=== PATIENT | female | born 1950 | race Two or more races ===

== ENCOUNTER 2019-11-26 13:00 | Outpatient (CLI) | payer MEDICARE, MEDICAID ==
[2019-11-26 15:01] LABS: BASOPHILS # (AUTO) 0.1 /CMM (0.0-0.2); BASOPHILS % (AUTO) 0.9 % (0.0-2.0); EOSINOPHILS % (AUTO) 1.8 % (0.0-6.0); HEMATOCRIT 46 % (33-45); HEMOGLOBIN 14.9 g/dL (11.5-14.8); LYMPHOCYTES # (AUTO) 2.5 /CMM (0.8-4.8); LYMPHOCYTES % (AUTO) 36.8 % (20.0-44.0); MEAN CORPUSCULAR HGB CONC 33 g/dl (31.0-36.0); MEAN CORPUSCULAR VOLUME 87 fL (82-100); MONOCYTES # (AUTO) 0.4 /CMM (0.1-1.30); MONOCYTES % (AUTO) 5.4 % (2.0-12.0); NEUTROPHILS # (AUTO) 3.8 /CMM (1.8-8.9); NEUTROPHILS % (AUTO) 55.1 % (43.0-81.0); PLATELET COUNT (AUTO) 271 /CMM (150-450); RED BLOOD CELL COUNT(AUTO) 5.21 MIL/uL (4.0-5.2); WHITE BLOOD COUNT (AUTO) 6.8 K/uL (4.3-11.0)
[2019-11-26 15:33] LABS: ALBUMIN 3.6 g/dL (3.4-5.0); BILIRUBIN,TOTAL 0.5 mg/dL (0.2-1.0); CALCIUM, SERUM 9.3 mg/dL (8.5-10.1); CREATININE 0.9 mg/dL (0.6-1.3); POTASSIUM 4.1 mmol/L (3.5-5.1); TOTAL PROTEIN, SERUM 7.4 g/dL (6.4-8.2)
== END 2019-11-26 23:59 | disposition home or self-care (01) ==
LOC: MSC 13:00
PROVIDERS: ATTEND Internal Medicine
DX: M79.7 Fibromyalgia (principal); J45.909 Unspecified asthma, uncomplicated; G47.00 Insomnia, unspecified; R53.82 Chronic fatigue, unspecified; J32.9 Chronic sinusitis, unspecified; E53.8 Deficiency of other specified B group vitamins; I10 Essential (primary) hypertension; R73.9 Hyperglycemia, unspecified; I95.1 Orthostatic hypotension; D84.9 Immunodeficiency, unspecified; E55.9 Vitamin D deficiency, unspecified; E78.5 Hyperlipidemia, unspecified
CPT/HCPCS: 36415; 80053; 82306; 83036; 85025; G0463

== ENCOUNTER 2019-12-17 15:11 | Outpatient (CLI) | payer MEDICARE, MEDICAID | END 2019-12-17 23:59 | disposition home or self-care (01) | LOC: MSC 15:11 | PROVIDERS: ATTEND Internal Medicine | DX: L25.9 Unspecified contact dermatitis, unspecified cause (principal); E53.8 Deficiency of other specified B group vitamins; R53.82 Chronic fatigue, unspecified; I10 Essential (primary) hypertension; M79.7 Fibromyalgia; J45.909 Unspecified asthma, uncomplicated; I95.1 Orthostatic hypotension; G47.00 Insomnia, unspecified; D84.9 Immunodeficiency, unspecified; E78.5 Hyperlipidemia, unspecified; R73.9 Hyperglycemia, unspecified ==

== ENCOUNTER 2020-01-14 11:38 | Outpatient (CLI) | payer MEDICARE, MEDICAID | END 2020-01-14 23:59 | disposition home or self-care (01) | LOC: MSC 11:38 | PROVIDERS: ATTEND Internal Medicine | DX: D51.9 Vitamin B12 deficiency anemia, unspecified (principal) | CPT/HCPCS: J3420 ×2; 96372 ==

== ENCOUNTER 2020-01-21 15:30 | Outpatient (CLI) | payer MEDICARE, MEDICAID | END 2020-01-21 23:59 | disposition home or self-care (01) | LOC: MSC 15:30 | PROVIDERS: ATTEND Internal Medicine | DX: B34.9 Viral infection, unspecified (principal); R19.7 Diarrhea, unspecified; J45.909 Unspecified asthma, uncomplicated; L25.9 Unspecified contact dermatitis, unspecified cause; E53.8 Deficiency of other specified B group vitamins; R53.82 Chronic fatigue, unspecified; I10 Essential (primary) hypertension; M79.7 Fibromyalgia; R73.9 Hyperglycemia, unspecified; I95.1 Orthostatic hypotension; G47.00 Insomnia, unspecified; D84.9 Immunodeficiency, unspecified; E78.5 Hyperlipidemia, unspecified ==

== ENCOUNTER 2020-01-24 11:36 | Outpatient (CLI) | payer MEDICARE, MEDICAID | END 2020-01-24 23:59 | disposition home or self-care (01) | LOC: LAB 11:36 | PROVIDERS: ATTEND Internal Medicine | DX: Z01.812 Encounter for preprocedural laboratory examination (principal); Z20.828 Contact with and (suspected) exposure to other viral communicable diseases; J98.8 Other specified respiratory disorders | CPT/HCPCS: C9803; U0003 ==

== ENCOUNTER 2020-07-28 15:50 | Outpatient (CLI) | payer MEDICARE, MEDICAID ==
[2020-07-28 17:11] LABS: BASOPHILS % (AUTO) 0.7 % (0.0-2.0); EOSINOPHILS % (AUTO) 1.8 % (0.0-6.0); HEMATOCRIT 44 % (33-45); HEMOGLOBIN 14.4 g/dL (11.5-14.8); LYMPHOCYTES # (AUTO) 1.8 /CMM (0.8-4.8); LYMPHOCYTES % (AUTO) 28.2 % (20.0-44.0); MEAN CORPUSCULAR HGB CONC 33 g/dl (31.0-36.0); MEAN CORPUSCULAR VOLUME 88 fL (82-100); MONOCYTES # (AUTO) 0.3 /CMM (0.1-1.30); MONOCYTES % (AUTO) 4.5 % (2.0-12.0); NEUTROPHILS # (AUTO) 4.2 /CMM (1.8-8.9); NEUTROPHILS % (AUTO) 64.8 % (43.0-81.0); PLATELET COUNT (AUTO) 264 /CMM (150-450); RED BLOOD CELL COUNT(AUTO) 4.97 MIL/uL (4.0-5.2); WHITE BLOOD COUNT (AUTO) 6.5 K/uL (4.3-11.0)
[2020-07-28 17:34] LABS: THYROID STIMULATING HORMONE 1.816 uIU/mL (0.358-3.74)
[2020-07-28 17:48] LABS: ALBUMIN 3.4 g/dL (3.4-5.0); BILIRUBIN,TOTAL 0.5 mg/dL (0.2-1.0); CALCIUM, SERUM 8.9 mg/dL (8.5-10.1); CREATININE 1.2 mg/dL (0.6-1.3); MAGNESIUM 2.1 mg/dL (1.8-2.4); PHOSPHORUS 3.8 mg/dL (2.5-4.9); POTASSIUM 3.9 mmol/L (3.5-5.1); TOTAL PROTEIN, SERUM 6.9 g/dL (6.4-8.2)
== END 2020-07-28 23:59 | disposition home or self-care (01) ==
LOC: MSC 15:50
PROVIDERS: ATTEND Internal Medicine
DX: I10 Essential (primary) hypertension (principal); J45.909 Unspecified asthma, uncomplicated; M79.7 Fibromyalgia; R53.82 Chronic fatigue, unspecified; E53.8 Deficiency of other specified B group vitamins; R73.9 Hyperglycemia, unspecified; I95.1 Orthostatic hypotension; G47.00 Insomnia, unspecified; D84.9 Immunodeficiency, unspecified; E78.5 Hyperlipidemia, unspecified; Z88.8 Allergy status to other drugs, medicaments and biological substances; Z82.49 Family history of ischemic heart disease and other diseases of the circulatory system; Z79.899 Other long term (current) drug therapy
CPT/HCPCS: 36415; 80053; 82306; 82607; 83735; 84100; 84443; 85025; 85652; G0463

== ENCOUNTER 2020-11-23 11:07 | Outpatient (CLI) | payer MEDICARE, MEDICAID ==
[2020-11-23 13:03] LABS: BASOPHILS % (AUTO) 0.8 % (0.0-2.0); EOSINOPHILS % (AUTO) 2.1 % (0.0-6.0); HEMATOCRIT 43 % (33-45); HEMOGLOBIN 14.4 g/dL (11.5-14.8); LYMPHOCYTES # (AUTO) 2.1 K/uL (0.8-4.8); LYMPHOCYTES % (AUTO) 35.2 % (20.0-44.0); MEAN CORPUSCULAR HGB CONC 34 g/dl (31.0-36.0); MEAN CORPUSCULAR VOLUME 88 fL (82-100); MONOCYTES # (AUTO) 0.3 K/uL (0.1-1.30); MONOCYTES % (AUTO) 4.3 % (2.0-12.0); NEUTROPHILS # (AUTO) 3.4 K/uL (1.8-8.9); NEUTROPHILS % (AUTO) 57.6 % (43.0-81.0); PLATELET COUNT (AUTO) 243 K/uL (150-450); RED BLOOD CELL COUNT(AUTO) 4.85 MIL/uL (4.0-5.2); WHITE BLOOD COUNT (AUTO) 5.9 K/uL (4.3-11.0)
[2020-11-23 13:14] LABS: BILIRUBIN,URINE NEGATIVE (NEGATIVE); COLOR,URINE YELLOW (YELLOW); LEUKOCYTE ESTERASE ,URINE NEGATIVE (NEGATIVE); NITRITE, URINE NEGATIVE (NEGATIVE); PROTEIN,URINE NEGATIVE (NEGATIVE); UGLUCOSE NEGATIVE (NEGATIVE); UROBILINOGEN,URINE 0.2 EU/dL (0.2)
[2020-11-23 13:29] LABS: URINE TOTAL PROTEIN 13.2 mg/dL (0-11.9)
[2020-11-23 13:42] LABS: C-REACTIVE PROTEIN 0.8 mg/dL (0.0-0.9); THYROID STIMULATING HORMONE 1.732 uIU/mL (0.358-3.74)
[2020-11-23 14:05] LABS: ALBUMIN 3.5 g/dL (3.4-5.0); BILIRUBIN,TOTAL 0.5 mg/dL (0.2-1.0); CALCIUM, SERUM 9.1 mg/dL (8.5-10.1); CREATININE 0.8 mg/dL (0.6-1.3); MAGNESIUM 2.3 mg/dL (1.8-2.4); PHOSPHORUS 3.1 mg/dL (2.5-4.9); POTASSIUM 3.9 mmol/L (3.5-5.1); TOTAL PROTEIN, SERUM 6.8 g/dL (6.4-8.2)
== END 2020-11-23 23:59 | disposition home or self-care (01) ==
LOC: MSC 11:07
PROVIDERS: ATTEND Internal Medicine
DX: I10 Essential (primary) hypertension (principal); B49 Unspecified mycosis; J45.909 Unspecified asthma, uncomplicated; E66.9 Obesity, unspecified; Z68.37 Body mass index [BMI] 37.0-37.9, adult; Z71.3 Dietary counseling and surveillance; E53.8 Deficiency of other specified B group vitamins; M79.7 Fibromyalgia; R73.9 Hyperglycemia, unspecified; I95.1 Orthostatic hypotension; G47.00 Insomnia, unspecified; D84.9 Immunodeficiency, unspecified; E78.5 Hyperlipidemia, unspecified; Z79.899 Other long term (current) drug therapy
CPT/HCPCS: 36415; 80053; 80061; 81003; 82043; 82306; 82570; 82607; 82746; 83036; 83735; 84100; 84155; 84439; 84443; 85025; 85652; 86140; G0463

== ENCOUNTER → 2020-11-29 | Outpatient (CLI) | payer MEDICARE, MEDICAID | END | disposition home or self-care (01) | LOC: MSC 14:00 | PROVIDERS: ATTEND Internal Medicine | DX: I10 Essential (primary) hypertension (principal); E55.9 Vitamin D deficiency, unspecified; J45.909 Unspecified asthma, uncomplicated; E53.8 Deficiency of other specified B group vitamins; R53.82 Chronic fatigue, unspecified; M79.7 Fibromyalgia; R73.9 Hyperglycemia, unspecified; I95.1 Orthostatic hypotension; G47.00 Insomnia, unspecified; D84.9 Immunodeficiency, unspecified; E78.5 Hyperlipidemia, unspecified; B36.9 Superficial mycosis, unspecified ==

== ENCOUNTER → 2021-03-27 | Outpatient (CLI) | payer MEDICARE, MEDICAID | END | disposition home or self-care (01) | LOC: MSC 12:15 | PROVIDERS: ATTEND Internal Medicine | DX: K52.9 Noninfective gastroenteritis and colitis, unspecified (principal); I10 Essential (primary) hypertension; E55.9 Vitamin D deficiency, unspecified; J45.909 Unspecified asthma, uncomplicated; E53.8 Deficiency of other specified B group vitamins; R53.82 Chronic fatigue, unspecified; M79.7 Fibromyalgia; R73.9 Hyperglycemia, unspecified; I95.1 Orthostatic hypotension; G47.00 Insomnia, unspecified; D84.9 Immunodeficiency, unspecified; E78.5 Hyperlipidemia, unspecified; B49 Unspecified mycosis ==

== ENCOUNTER 2021-09-06 11:34 | Outpatient (CLI) | payer MEDICARE, OTHER ==
[2021-09-06 12:39] LABS: BASOPHILS # (AUTO) 0.1 K/uL (0.0-0.2); BASOPHILS % (AUTO) 0.9 % (0.0-2.0); EOSINOPHILS % (AUTO) 1.9 % (0.0-6.0); HEMATOCRIT 41 % (33-45); HEMOGLOBIN 13.5 g/dL (11.5-14.8); LYMPHOCYTES # (AUTO) 2.2 K/uL (0.8-4.8); LYMPHOCYTES % (AUTO) 34.3 % (20.0-44.0); MEAN CORPUSCULAR HGB CONC 33 g/dl (31.0-36.0); MEAN CORPUSCULAR VOLUME 87 fL (82-100); MONOCYTES # (AUTO) 0.4 K/uL (0.1-1.30); MONOCYTES % (AUTO) 5.7 % (2.0-12.0); NEUTROPHILS # (AUTO) 3.8 K/uL (1.8-8.9); NEUTROPHILS % (AUTO) 57.2 % (43.0-81.0); PLATELET COUNT (AUTO) 254 K/uL (150-450); RED BLOOD CELL COUNT(AUTO) 4.69 MIL/uL (4.0-5.2); WHITE BLOOD COUNT (AUTO) 6.6 K/uL (4.3-11.0)
[2021-09-06 13:01] LABS: C-REACTIVE PROTEIN 0.4 mg/dL (0.0-0.9); FREE T4 (FREE THYROXINE) 0.86 ng/dL (0.76-1.46); THYROID STIMULATING HORMONE 1.779 uIU/mL (0.358-3.74)
[2021-09-06 23:55] LABS: ALANINE AMINOTRANSFERASE 29 U/L (12-78); ALBUMIN 3.4 g/dL (3.4-5.0); ALKALINE PHOSPHATASE 86 U/L (46-116); ASPARTATE AMINOTRANSFERASE 16 U/L (15-37); BILIRUBIN,TOTAL 0.4 mg/dL (0.2-1.0); CALCIUM, SERUM 8.9 mg/dL (8.5-10.1); CARBON DIOXIDE 30 mmol/L (21-32); CHLORIDE 106 mmol/L (98-107); CREATININE 0.8 mg/dL (0.6-1.3); GLUCOSE 126 mg/dL (74-106); MAGNESIUM 2.1 mg/dL (1.8-2.4); POTASSIUM 3.6 mmol/L (3.5-5.1); SODIUM SERUM 142 mmol/L (136-145); TOTAL PROTEIN, SERUM 6.8 g/dL (6.4-8.2); UREA NITROGEN, BLOOD 18 mg/dL (7-18)
== END 2021-09-06 23:59 | disposition home or self-care (01) ==
LOC: MSC 11:34
PROVIDERS: ATTEND Internal Medicine
DX: I10 Essential (primary) hypertension (principal); K52.9 Noninfective gastroenteritis and colitis, unspecified; E66.9 Obesity, unspecified; Z68.35 Body mass index [BMI] 35.0-35.9, adult; E55.9 Vitamin D deficiency, unspecified; J45.909 Unspecified asthma, uncomplicated; R53.82 Chronic fatigue, unspecified; M79.7 Fibromyalgia; R73.9 Hyperglycemia, unspecified; I95.1 Orthostatic hypotension; G47.00 Insomnia, unspecified; D84.9 Immunodeficiency, unspecified; E78.5 Hyperlipidemia, unspecified; B36.9 Superficial mycosis, unspecified; Z76.0 Encounter for issue of repeat prescription; Z79.899 Other long term (current) drug therapy
CPT/HCPCS: 36415; 80053; 82306; 82607; 83036; 83735; 84100; 84439; 84443; 85025; 85652; 86140; G0463

== ENCOUNTER → 2021-09-11 | Outpatient (CLI) | payer MEDICARE, OTHER | END | disposition home or self-care (01) | LOC: MSC 10:00 | PROVIDERS: ATTEND Internal Medicine | DX: I10 Essential (primary) hypertension (principal); K52.9 Noninfective gastroenteritis and colitis, unspecified; E66.9 Obesity, unspecified; E55.9 Vitamin D deficiency, unspecified; J45.909 Unspecified asthma, uncomplicated; E53.8 Deficiency of other specified B group vitamins; R53.82 Chronic fatigue, unspecified; M79.7 Fibromyalgia; R73.9 Hyperglycemia, unspecified; G47.00 Insomnia, unspecified; D84.9 Immunodeficiency, unspecified; E78.5 Hyperlipidemia, unspecified; B36.9 Superficial mycosis, unspecified; Z79.899 Other long term (current) drug therapy ==

== ENCOUNTER 2021-10-11 10:44 | Outpatient (CLI) | payer MEDICARE, OTHER | END 2021-10-11 23:59 | disposition home or self-care (01) | LOC: MSC 10:44 | PROVIDERS: ATTEND Internal Medicine | DX: E53.8 Deficiency of other specified B group vitamins (principal) | CPT/HCPCS: J3420 ×2; 96372 ==

== ENCOUNTER 2022-01-09 12:25 | Outpatient (CLI) | payer MEDICARE, OTHER | END 2022-01-09 23:59 | disposition home or self-care (01) | LOC: MSC 12:25 | PROVIDERS: ATTEND Internal Medicine | DX: R53.83 Other fatigue (principal) | CPT/HCPCS: J3420 ×2; 96372 ==

== ENCOUNTER → 2022-03-29 | Outpatient (CLI) | payer MEDICARE, OTHER | END | disposition home or self-care (01) | LOC: MSC 14:45 | PROVIDERS: ATTEND Internal Medicine | DX: J20.9 Acute bronchitis, unspecified (principal); J45.909 Unspecified asthma, uncomplicated; I10 Essential (primary) hypertension; E66.9 Obesity, unspecified; K52.9 Noninfective gastroenteritis and colitis, unspecified; E55.9 Vitamin D deficiency, unspecified; E53.8 Deficiency of other specified B group vitamins; R53.82 Chronic fatigue, unspecified; M79.7 Fibromyalgia; R73.9 Hyperglycemia, unspecified; G47.00 Insomnia, unspecified; I95.1 Orthostatic hypotension; D84.9 Immunodeficiency, unspecified; E78.5 Hyperlipidemia, unspecified; B36.9 Superficial mycosis, unspecified ==

== ENCOUNTER 2022-05-14 12:01 | Outpatient (CLI) | payer MEDICARE, OTHER | END 2022-05-14 23:59 | disposition home or self-care (01) | LOC: MSC 12:01 | PROVIDERS: ATTEND Internal Medicine | DX: R53.83 Other fatigue (principal) | CPT/HCPCS: 96372; J3420 ==

== ENCOUNTER 2022-05-22 14:30 | Outpatient (CLI) | payer MEDICARE, OTHER | END 2022-05-22 23:59 | disposition home or self-care (01) | LOC: MSC 14:30 | PROVIDERS: ATTEND Internal Medicine | DX: J30.9 Allergic rhinitis, unspecified (principal); J20.9 Acute bronchitis, unspecified; J45.909 Unspecified asthma, uncomplicated; I10 Essential (primary) hypertension; E66.9 Obesity, unspecified; K52.9 Noninfective gastroenteritis and colitis, unspecified; E55.9 Vitamin D deficiency, unspecified; E53.8 Deficiency of other specified B group vitamins; R53.82 Chronic fatigue, unspecified; M79.7 Fibromyalgia; R73.9 Hyperglycemia, unspecified; G47.00 Insomnia, unspecified; I95.1 Orthostatic hypotension; D84.9 Immunodeficiency, unspecified; E78.5 Hyperlipidemia, unspecified; B36.9 Superficial mycosis, unspecified ==

== ENCOUNTER 2022-08-08 12:03 | Outpatient (CLI) | payer MEDICARE, OTHER | END 2022-08-08 23:59 | disposition home or self-care (01) | LOC: MSC 12:03 | PROVIDERS: ATTEND Internal Medicine | DX: R53.83 Other fatigue (principal) | CPT/HCPCS: J3420 ×2; 96372 ==

== ENCOUNTER → 2023-12-24 | Outpatient (CLI) | payer MEDICARE, OTHER | END | disposition home or self-care (01) | LOC: MSC 14:30 | PROVIDERS: ATTEND Internal Medicine | DX: J06.9 Acute upper respiratory infection, unspecified (principal); M85.80 Other specified disorders of bone density and structure, unspecified site; I10 Essential (primary) hypertension; J20.9 Acute bronchitis, unspecified; J45.909 Unspecified asthma, uncomplicated; F41.8 Other specified anxiety disorders; G47.00 Insomnia, unspecified; E78.5 Hyperlipidemia, unspecified; B36.9 Superficial mycosis, unspecified; E66.9 Obesity, unspecified; K52.9 Noninfective gastroenteritis and colitis, unspecified; E55.9 Vitamin D deficiency, unspecified; E53.8 Deficiency of other specified B group vitamins; R53.82 Chronic fatigue, unspecified; M79.7 Fibromyalgia; R73.9 Hyperglycemia, unspecified; D84.9 Immunodeficiency, unspecified; I95.1 Orthostatic hypotension ==